=== PATIENT | male | born 1995 | race Caucasian/White ===

== ENCOUNTER 2021-05-02 14:37 | Emergency (ER) | payer BC ==
[2021-05-02] MEDS ORDERED: Acyclovir 200 MG Cap PO ONE ×2 (14:38→15:51)
[2021-05-02 15:38] LABS: ANION GAP 13.1 mEq/L (7-13); CHLORIDE,CL 104 mmol/L (98-107); SODIUM,NA 142 mmol/L (136-145)
[2021-05-02 15:41] LABS: PTT,PARTIAL THROMBOPLSTIN TIME 25.9 SEC (22.0-34.0)
[2021-05-02] MEDS ORDERED: predniSONE 20 MG Tab PO ONE (15:55)
[2021-05-02] MEDS ORDERED: Acyclovir 200 MG Cap ONE (15:59)
== END 2021-05-02 16:09 | disposition home or self-care (01) ==
LOC: DL.ED 14:37
DX: G51.0 Bell's palsy (principal); Z88.0 Allergy status to penicillin; Z86.16 Personal history of COVID-19
CPT/HCPCS: 36415; 70450; 80053; 85025; 85610; 85730; 99284-25; A9270-GY; J7512